=== PATIENT | male | born 1995 | race Caucasian/White ===

== ENCOUNTER 2016-09-22 11:29 | Emergency (ER) | payer BC, OTHER ==
[~2016-09-22] VITALS: Ht 177.8 cm; Wt 69.1 kg
[2016-09-22 11:31] VITALS: Ht 177.8 cm; Wt 69.1 kg
[2016-09-22] MEDS ORDERED: SODIUM CHLORIDE 0.9% 1000ML 2,000 ML IV STA (12:06)
[2016-09-22] MEDS ORDERED: ACETAMINOPHEN IV 1,000 MG in EMPTY BAG 0 ML IV STA (12:06)
[2016-09-22] MEDS ORDERED: KETOROLAC TROMETHAMINE 30 MG/ML VIAL IV STA (12:06)
[2016-09-22 12:19] LABS: COMPLETE YES; HEMATOCRIT 42.7 % (42-52); IG% 0.3 %; LYMPH % 11.6 %; LYMPH ABS # 0.69 K/uL (1.2-3.4); MEAN CELL VOLUME 82.3 fL (80-100); MEAN CORPUSCULAR HEMOGLOBIN 27.9 pg (25-34); MONO % 18.7 %; NEUT % 69.4 %; PLATELET COUNT 189 K/uL (130-400); RED BLOOD COUNT 5.19 M/uL (4.7-6.1); WHITE BLOOD COUNT 5.95 K/uL (4.8-10.8)
[2016-09-22] MEDS ORDERED: IBUP-103 PO (12:26)
--- NOTE | 2016-09-22 12:28 | DIAGNOSTIC IMAGING REPORT ---
SINGLE VIEW CHEST CLINICAL HISTORY: Cough and fever. FINDINGS: An AP, portable, upright chest radiograph is obtained. No prior studies are available for comparison at the time of dictation. The cardiomediastinal silhouette is unremarkable. The lungs and pleural spaces are clear. No pneumothorax is seen. The bony thorax is grossly intact. IMPRESSION: No active disease in the chest. Electronically signed by: Zhao Carter M.D. 09/22/2016 12:26 PM Dictated Date/Time: 09/22/2016 12:25 PM
[2016-09-22 12:40] LABS: BUN/CREATININE RATIO 11.5 (10-20); CALCIUM 9.1 mg/dl (8.5-10.1); POTASSIUM 3.7 mmol/L (3.5-5.1)
[2016-09-22] MEDS ORDERED: CEFTRIAXONE SOD INJ 1 GM ADDVIAL IV STA (13:16)
[2016-09-22] MEDS ORDERED: SODIUM CHLORIDE 0.9% 1000ML 1,000 ML IV STA (13:16)
[2016-09-22] MEDS ORDERED: DEXAMETHASONE SOD INJ 10 MG/ML VIAL IV ONE (13:30)
[2016-09-22] MEDS ORDERED: METH4PAK PO (13:35)
[2016-09-22] MEDS ORDERED: AZITTAB PO (13:35)
[2016-09-22] MEDS ORDERED: HYDR5SYP11 PO (13:35)
--- NOTE | 2016-09-22 13:36 | EMERGENCY ROOM VISIT NOTE ---
History Report prepared by Kaleb: Miryam Tejeda Under the Supervision of: Dr. Gaston Varela M.D. First contact with patient: 11:56 Chief Complaint: FEVER Stated Complaint: FEVER, DEHYDRATION, VOMITING History of Present Illness The patient is a 21 year old male who presents to the Emergency Room with complaints of a persistent fever that started 2 days ago. He also started experiencing chills 2 days ago. The patient took Advil around 0430 this morning and it offered him minimal relief of his symptoms. He denies taking any Tylenol. The patient is also experiencing a cough and a headache that started one week ago. Additionally, the patient is experiencing a sore throat. The patient states that he was seen at Urgent Care yesterday and had a fever recorded at 102.4. He tested negative for the influenza A and B as well as strep throat. They told him to relax and stay hydrated and that if he developed vomiting to come into the ED. The patient began to experience nausea and vomiting this morning after trying to drink water. He is also experiencing abdominal aching with vomiting, but denies generalized body aches. The patient denies lightheadedness with standing, neck stiffness, burning with urination, diarrhea, rashes, and lower extremity edema. He states that his urine is dark when he is able to urinate. The patient denies any recent alcohol overdoses and any previous hospitalizations for bad infections. He also denies any recent sick contacts. Source of History: patient Onset: 2 days ago Position: other (global) Quality: other (fever) Timing: other (persistent) Associated Symptoms: + abdominal pain (aching with vomiitng), + cough, + headache, + nausea, + sorethroat, + vomiting, No rash, No urinary symptoms (no burning with urination) Note: dark urine, no generalized body aches, no lightheadedness with standing, no neck stiffness, no lower extremity edema Review of Systems See HPI for pertinent positives & negatives. A total of 10 systems reviewed and were otherwise negative. Past Medical & Surgical Surgical Problems: (1) History of adenoidectomy Family History No pertinent family history Social History Smoking Status: Never Smoker Alcohol Use: occasionally Occupation Status: [employer] Current/Historical Medications Scheduled Azithromycin (Zithromax Z-Cy), 1 PKT PO UD Methylprednisolone (Medrol Dosepak), 1 PKT PO UD Scheduled PRN Hydrocodone W/ Homatropine (Hycodan 5/1.5MG 5 Ml), 5-10 ML PO Q4H PRN for Cough Miscellaneous Medications Ibuprofen Tab (Advil), 200 MG PO Allergies Coded Allergies: No Known Allergies (Unverified , 09/22/16) Physical Exam Vital Signs Date Time Temp Pulse Resp B/P Pulse Ox O2 Delivery O2 Flow Rate FiO2 09/22/16 14:20 37.7 99 20 125/62 96 09/22/16 12:55 38.8 95 20 115/58 95 Room Air 09/22/16 11:31 39.5 112 22 125/80 100 Room Air Physical Exam GENERAL: Patient is uncomfortable and dehydrated appearing but in no acute distress. HEENT: No acute trauma, normocephalic atraumatic, mucous membranes dry, no nasal congestion, no scleral icterus, erythematous and enlarged tonsils. NECK: No stridor, no adenopathy, no meningismus, trachea is midline. LUNGS: No dyspnea. Clear to auscultation and equal bilaterally. No wheeze, no rhonchi. HEART: Tachycardic rate and regular rhythm. No murmurs, rubs, gallops appreciated. ABDOMEN: Soft, nontender, bowel sounds positive, no masses appreciated, no peritonitis. BACK: No midline tenderness, no CVA tenderness EXTREMITIES: Normal motion all extremities, no cyanosis, no edema. NEUROLOGIC: Alert and oriented, no acute motor or sensory deficits, no focal weakness, cranial nerves grossly intact. SKIN: No rash, no jaundice, no diaphoresis. Medical Decision & Procedures ER Provider Diagnostic Interpretation: X ray results are stated below per my interpretation and the radiologist's interpretation. SINGLE VIEW CHEST IMPRESSION: No active disease in the chest. Electronically signed by: Zhao Carter M.D. 09/22/2016 12:26 PM Dictated Date/Time: 09/22/2016 12:25 PM Laboratory Results 09/22/16 11:55 Red Blood Count 5.19, Mean Corpuscular Volume 82.3, Mean Corpuscular Hemoglobin 27.9, Mean Corpuscular Hemoglobin Concent 34.0, Mean Platelet Volume 9.0, Neutrophils (%) (Auto) 69.4, Lymphocytes (%) (Auto) 11.6, Monocytes (%) (Auto) 18.7, Eosinophils (%) (Auto) 0.0, Basophils (%) (Auto) 0.0, Neutrophils # (Auto ) 4.13, Lymphocytes # (Auto) 0.69, Monocytes # (Auto) 1.11, Eosinophils # (Auto ) 0.00, Basophils # (Auto) 0.00 09/22/16 11:55 Test 09/22/16 11:55 09/22/16 12:21 White Blood Count 5.95 K/uL (4.8-10.8) Red Blood Count 5.19 M/uL (4.7-6.1) Hemoglobin 14.5 g/dL (14.0-18.0) Hematocrit 42.7 % (42-52) Mean Corpuscular Volume 82.3 fL (80-100) Mean Corpuscular Hemoglobin 27.9 pg (25-34) Mean Corpuscular Hemoglobin Concent 34.0 g/dl (32-36) Platelet Count 189 K/uL (130-400) Mean Platelet Volume 9.0 fL (7.4-10.4) Neutrophils (%) (Auto) 69.4 % Lymphocytes (%) (Auto) 11.6 % Monocytes (%) (Auto) 18.7 % Eosinophils (%) (Auto) 0.0 % Basophils (%) (Auto) 0.0 % Neutrophils # (Auto) 4.13 K/uL (1.4-6.5) Lymphocytes # (Auto) 0.69 K/uL (1.2-3.4) Monocytes # (Auto) 1.11 K/uL (0.11-0.59) Eosinophils # (Auto) 0.00 K/uL (0-0.5) Basophils # (Auto) 0.00 K/uL (0-0.2) RDW Standard Deviation 35.5 fL (36.4-46.3) RDW Coefficient of Variation 11.8 % (11.5-14.5) Immature Granulocyte % (Auto) 0.3 % Immature Granulocyte # (Auto) 0.02 K/uL (0.00-0.02) Anion Gap 9.0 mmol/L (3-11) Est Creatinine Clear Calc Drug Dose 114.2 ml/min Estimated GFR () 124.1 Estimated GFR (Non- 107.1 BUN/Creatinine Ratio 11.5 (10-20) Calcium Level 9.1 mg/dl (8.5-10.1) Bedside Lactic Acid Venous 0.94 mmol/L (0.90-1.70) Laboratory results as reviewed by me. Medications Administered Medications (Trade) Dose Ordered Sig/Sahra Route Start Time Stop Time Status Last Admin Dose Admin Acetaminophen 1000 mg/Empty Bag 100 ml @ 400 mls/hr NOW STAT IV 09/22/16 12:06 09/22/16 12:22 DC 09/22/16 12:34 400 MLS/HR Sodium Chloride (Nss 1000ml) 2,000 ml @ 999 mls/hr Q2H1M STAT IV 09/22/16 12:06 09/22/16 14:06 DC 09/22/16 12:10 999 MLS/HR Ketorolac Tromethamine (Toradol Inj) 30 mg NOW STAT IV 09/22/16 12:06 09/22/16 12:09 DC 09/22/16 12:12 30 MG Dexamethasone Sodium Phosphate (Decadron Inj) 10 mg NOW ONCE IV 09/22/16 13:30 09/22/16 13:31 DC 09/22/16 13:22 10 MG Ceftriaxone Sodium 1 gm 1 gm NOW STAT IV 09/22/16 13:16 09/22/16 13:17 DC 09/22/16 13:22 1 GM Sodium Chloride (Nss 1000ml) 1,000 ml @ 999 mls/hr Q1H1M STAT IV 09/22/16 13:16 09/22/16 14:16 DC 09/22/16 13:22 999 MLS/HR ED Course 1201: The patient was evaluated in room C9. A complete history and physical exam was performed. 1206: Ordered Toradol Inj 30 mg IV, Sodium Chloride 2000 ml @ 999 mls/hr IV, Acetaminophen 1000 mg/Empty Bag 100 ml @ 400 mls/hr IV 1314: I reevaluated the patient. He feels much better and is not in any further distress. 1316: Ordered Sodium Chloride 1000 ml @ 999 mls/hr IV, Rocephin Inj 1 gm IV 1330: Ordered Decadron Inj 10 mg IV 1333: The patient's nurse informed me that the patient would like to be discharged so he can get to class. He states that he needs to get to class because he has had perfect attendance all semester and does not want to take the final. 1337: Reevaluated the patient. Discussed results and discharge instructions: the patient and his parents verbalized understanding and agreement. The patient is ready for discharge. Medical Decision Differential: Viral, Pharyngitis, Cellulitis, Pneumonia, Influenza, Meningitis, Sepsis, Bacteremia, UTI/Pyelonephritis, Endocrine, Toxicologic, amongst other pathologies entertained. 21 yr old male arrives with complaint of fever with persistent cough and dehydration. Clearly dry on arrival. No meningitis by examination and he does not appear septic. WBC normal, Lactic acid normal. HR much improved with fluids. With persistent symptoms, cough and pharyngitis seems reasonable to adding on abx now that cultures obtained. Will add steroids and cough meds as well. He is not septic and looks well. Abdomen is soft, non-tender and non- surgical. CXR clear and he is breathing comfortably. The patient is well hydrated, happy, breathing comfortably and in no distress. They are not septic and are stable at discharge. Discussed plan to continue monitoring as outpatient with him and parents. RTED at any time if worsening or other concerns. Impression Primary Impression: Fever Additional Impressions: Pharyngitis Dehydration Cough, persistent Scribe Attestation The scribe's documentation has been prepared under my direction and personally reviewed by me in its entirety. I confirm that the note above accurately reflects all work, treatment, procedures, and medical decision making performed by me. Departure Information Dispostion Home / Self-Care Prescriptions Azithromycin (ZITHROMAX Z-CY) 250 Mg Tab 1 PKT PO UD, #1 PKT Prov: Gaston Varela M.D. 09/22/16 Hydrocodone W/ Homatropine (HYCODAN 5/1.5MG 5 ML) 1 Syp Syp 5-10 ML PO Q4H Y for Cough, #120 ML Prov: Gaston Varela M.D. 09/22/16 Methylprednisolone (MEDROL DOSEPAK) 4 Mg Cy 1 PKT PO UD for 6 Days, #1 PKT Prov: Gaston Varela M.D. 09/22/16 Referrals [facility] Forms HOME CARE DOCUMENTATION FORM, IMPORTANT VISIT INFORMATION Patient Instructions Fever - [facility] [place], My [facility] Additional Instructions You have received a narcotic cough medication prescription. These medications may cause drowsiness and should not be used with other sedative medications. Do not drive, drink alcohol, perform dangerous activities, nor make important decisions after taking these medications. penitentiary use or inappropriate use may lead to addiction. Problem Qualifiers Primary Impression: Fever Fever type: unspecified Qualified Codes: R50.9 - Fever, unspecified Additional Impressions: Pharyngitis Pharyngitis/tonsillitis etiology: unspecified etiology Qualified Codes: J02.9 - Acute pharyngitis, unspecified
[2016-09-22 14:20] VITALS: BP 125/62; PULSE 99; TEMP 37.7; O2SAT 96
== END 2016-09-22 14:21 | disposition home or self-care (01) ==
LOC: C.EDB 11:30 → C.EDC 14:21
DX: R50.9 Fever, unspecified (principal); J02.9 Acute pharyngitis, unspecified; E86.0 Dehydration; R05 Cough; R51 Headache; R11.2 Nausea with vomiting, unspecified; R10.9 Unspecified abdominal pain